=== PATIENT | female | born 1970 | race Hispanic/Latino ===

== ENCOUNTER 2024-06-11 21:47 | Emergency (ER) | payer SELFPAY ==
[~2024-06-11] VITALS: Ht 157.5 cm; Wt 81.2 kg
[2024-06-11] MEDS: ondanSETRON ODT 4MG TAB SL ONE (22:34)
[2024-06-11 22:38] LABS: BASOPHILS # (AUTO) 0.04 K/uL (0.00-0.20); BASOPHILS % (AUTO) 0.5 % (0.0-5.0); EOSINOPHILS # (AUTO) 0.15 K/uL (0.00-0.70); EOSINOPHILS % (AUTO) 1.9 % (0.0-8.0); HEMATOCRIT 43.8 % (36-48); IMMATURE GRANULOCYTE ABSOLUTE 0.03 K/uL (0-1); LYMPHOCYTES # (AUTO) 2.3 K/uL (1.0-4.8); LYMPHOCYTES % (AUTO) 29.3 % (21.0-51.0); MEAN CORPUSCULAR HEMOGLOBIN 28.7 pg (27.0-33.0); MEAN CORPUSCULAR VOLUME 84.2 fL (79-99); MONOCYTES # (AUTO) 0.6 K/uL (0.1-1.0); MONOCYTES % (AUTO) 7.1 % (3.0-13.0); NEUTROPHILS # (AUTO) 4.7 K/uL (1.8-7.7); NEUTROPHILS % (AUTO) 60.8 % (40.0-77.0); PLATELET COUNT (AUTO) 270 K/uL (130-400); RED CELL DISTRIBUTION WIDTH 12.2 % (11.0-15.5); WHITE BLOOD COUNT (AUTO) 7.7 K/uL (4.8-10.8)
[2024-06-11 22:50] LABS: CREATININE 0.7 mg/dL (0.5-1.0); POTASSIUM 3.9 mmol/L (3.5-5.1)
[2024-06-11 22:54] LABS: ALBUMIN 3.7 g/dL (3.5-5.0); BILIRUBIN,TOTAL 0.3 mg/dL (0.2-1.0); TOTAL PROTEIN, SERUM 7.4 g/dL (6.0-8.3)
--- NOTE | 2024-06-11 23:05 | ERN ---
ED Note History of Present Illness Stated Complaint: HIGH BP Chief Complaint: Hypertension Time Seen by MD: 21:52 Time Seen by Midlevel: 21:52 Dictation: 53-year-old female presents to the emergency department due to reported having pain to the left arm that began today at 6:00 p.m.. She states that the pain is primarily there regarding some movement but does slightly increase when there is pressure applied to the left shoulder. Patient states that she got concerned due to having some nausea that began 1 hour ago prior to arrival. At this time, she denies having any chest pain, chest pressure or shortness of breath associated with this. Patient states that she can not recall having sustained any trauma to the left shoulder. Upon initial evaluation, the patient presents in no acute distress along with a normal neurovascular examination. Allergies: Coded Allergies: No Known Allergies (Unverified Allergy, Unknown, 06/11/24) Emergency Care AERONAUTICAL ENGINEER: None Past Medical History Past Medical History: No Pertinent History Surgical History: None PSYCH History: no pertinent psych hx Social History: Lives with family RN Note Reviewed/Agreed w/PFSH: Yes Review of System Dictation See HPI. Initial Vital Sign VS Vital Signs Date Time Temp Pulse Resp B/P (MAP) Pulse Ox O2 Delivery O2 Flow Rate FiO2 06/11/24 22:10 96.3 75 18 138/89 98 Room Air 06/11/24 22:32 0 21 Physical Exam Dictation General: awake, alert, NAD Head/Face: Normocephalic, atraumatic Eyes: PERRL, EOMI ENT: Oral mucosa moist Neck: Trachea midline, supple Cardiovascular: RRR, no edema Respiratory: Symmetrical, non-labored Abdomen: Soft, non-tender, non-distended, no guarding. Skin: Warm, dry, good turgor, no rash MS/Extremity: Pulses equal, no cyanosis, neurovascular intact, tendons of the left shoulder. Normal neurovascular examination. Neuro: COAx4, GCS 15, steady gait, Psych: Normal behavior, mood, and affect normal Results (Laboratory/Radiology) Laboratory/Radiology Laboratory Tests Test 06/11/24 22:30 White Blood Count 7.7 K/uL (4.8-10.8) Red Blood Count 5.20 MIL/uL (4.00-5.50) Hemoglobin 14.9 g/dL (12.0-16.0) Hematocrit 43.8 % (36-48) Mean Corpuscular Volume 84.2 fL (79-99) Mean Corpuscular Hemoglobin 28.7 pg (27.0-33.0) Mean Corpuscular Hemoglobin Concent 34.0 g/dL (32.0-36.0) Red Cell Distribution Width 12.2 % (11.0-15.5) Platelet Count 270 K/uL (130-400) Mean Platelet Volume 9.9 fL (7.5-10.5) Immature Granulocyte % (Auto) 0.4 % (0-1) Neutrophils (%) (Auto) 60.8 % (40.0-77.0) Lymphocytes (%) (Auto) 29.3 % (21.0-51.0) Monocytes (%) (Auto) 7.1 % (3.0-13.0) Eosinophils (%) (Auto) 1.9 % (0.0-8.0) Basophils (%) (Auto) 0.5 % (0.0-5.0) Neutrophils # (Auto) 4.7 K/uL (1.8-7.7) Lymphocytes # (Auto) 2.3 K/uL (1.0-4.8) Monocytes # (Auto) 0.6 K/uL (0.1-1.0) Eosinophils # (Auto) 0.15 K/uL (0.00-0.70) Basophils # (Auto) 0.04 K/uL (0.00-0.20) Absolute Immature Granulocyte (auto 0.03 K/uL (0-1) Nucleated Red Blood Cells 0.0 % (0.0-0.19) Sodium Level 142 mmol/L (136-145) Potassium Level 3.9 mmol/L (3.5-5.1) Chloride Level 104 mmol/L (101-111) Carbon Dioxide Level 30 mmol/L (21-32) Blood Urea Nitrogen 9 mg/dL (7-18) Creatinine 0.7 mg/dL (0.5-1.0) Glomerular Filtration Rate Calc 104 mL/min (>90) Random Glucose 107 mg/dL (70-105) H Total Calcium 9.1 mg/dL (8.5-10.1) Total Bilirubin 0.3 mg/dL (0.2-1.0) Aspartate Amino Transf (AST/SGOT) 23 U/L (10-37) Alanine Aminotransferase (ALT/SGPT) 34 U/L (12-78) Alkaline Phosphatase 114 U/L (50-136) Troponin I High Sensitivity < 4 ng/L (4-50) L Total Protein 7.4 g/dL (6.0-8.3) Albumin 3.7 g/dL (3.5-5.0) Labs Reviewed?: Yes EKG Comment: EKG done 06/11/2024 at 10:22 p.m. Ventricular rate 65 beats per minute MI 140 MS QRS 84 MS QT 389 MS No STEMI. X-RAY Comment: X-ray of the left shoulder with no cortical anomalies or deformities as interpreted by me. ED Course ED Course Orders Procedure Category Date Status Time 12 Lead Ekg Tracing- EKG 06/11/24 Logged Technical 22:18 Troponin I High LAB 06/11/24 Complete Sensitivity 22:18 Cbc With Differential LAB 06/11/24 Complete 22:18 Comprehensive LAB 06/11/24 Complete Metabolic Panel 22:18 Ondansetron Odt 4mg PHA 06/11/24 Complete Tab (Zofran 4mg Odt) 22:30 Shoulder Comp 2+Vws Lt RAD 06/11/24 Taken 22:18 12 Lead Ekg Tracing- EKG 06/11/24 Logged Technical 22:18 Ketorolac 60mg/2ml PHA 06/11/24 Complete (Toradol 60mg/2ml) 23:00 Current Medications Medications (Trade) Dose Ordered Sig/Shana Route PRN Reason Start Time Stop Time Status Last Admin Dose Admin Ketorolac Tromethamine (toRADol 60MG/ 2ML) 60 mg ONCE ONCE IM 06/11/24 23:00 06/11/24 23:01 DC 06/11/24 23:15 Ondansetron HCl (zoFRAN 4MG ODT) 4 mg ONCE ONCE SL 06/11/24 22:30 06/11/24 22:31 DC 06/11/24 22:34 Vital Signs Date Time Temp Pulse Resp B/P (MAP) Pulse Ox O2 Delivery O2 Flow Rate FiO2 06/11/24 23:00 96.3 74 18 126/79 98 Room Air* 0 21 06/11/24 22:32 74 18 98 Room Air* 0 21 06/11/24 22:10 96.3 75 18 138/89 98 Room Air HEART Score Response (Comments) Value History: Low suspicion (0) 0 EKG: Normal 0 Age: 45-65yrs (+1) 1 Risk Factors: No known risk factors (0) 0 Initial Troponin: Normal limit (0) 0 HEART Score Risk: Low Risk for MACE (1-3) Total 1 Medical Decision Making MDM MDM: Differential diagnosis: Left shoulder pain, left shoulder strain, left shoulder sprain. Rationale: Tests considered and ordered secondary to shared decision making include: Previous outside records reviewed: Old ER visits. Risk of complication and/or morbidity or mortality of patient management: None Medications-Per medication reconciliation Need for hospitalization: Patient does not meet criteria for hospitalization. Need for emergency major/minor surgery: No There are no social concerns with this patient. Prescription drug management Prescriptions will include symptomatic care Patient's prior external medical records from other ER visits were reviewed by me as indicated. Prior testing and results from previous visits were reviewed. Prior tests were taken into account with medical decision making and resource utilization, independent historian/historians were used to obtain complete medical history. I independently interpreted the test that were performed, results were reviewed by me and considered findings on radiology if ordered. Medical management and examination interpretation discussions were had by me with other qualified healthcare professionals as indicated for the patient's care. DX & DISP Disposition: Discharge Departure Impression: Primary Impression: Left arm pain Additional Impression: Left shoulder pain Condition: Stable Referrals: SELF,REFERRAL (PCP) Time of Disposition: 23:43 ALONSO MONTE Jun 11, 2024 23:05
[2024-06-11] MEDS: ketOROlac 60 MG VIAL (30MG/ML) IM ONE (23:15)
[2024-06-11 23:58] VITALS: BP 130/71; PULSE 74; RESP 18; TEMP 97; O2SAT 98
--- NOTE | 2024-06-12 01:40 | HMCIMG ---
SHOULDER COMP 2+VWS LT HISTORY: Pain COMPARISON: None TECHNIQUE: 2 images of left shoulder were obtained. FINDINGS: There is no acute displaced fracture or dislocation. Degenerative changes are seen. IMPRESSION: 1. Findings as described above.
--- NOTE | 2024-06-12 05:09 | EKG ---
[facility] Test Date: 2024-06-11 Test Time: 22:22:04 Pat Name: CULLEN MUÑOZ Department: ED Room: Gender: F Event Executive: [birth year] : 1970 Requested By: ALONSO MONTE Order Number: [id number] Reading MD: Cassie Rangel Measurements Intervals [place] Rate: 65 P: 24 WV: 140 QRS: -15 QRSD: 84 T: 1 QT: 389 QTc: 406 Interpretive Statements Sinus rhythm Low voltage, precordial leads No previous ECG available for comparison Electronically Signed On 06-12-2024 08:05:31 INTERIOR MECHANIC by Cassie Rangel Please click the below link to view image of tracing.
== END 2024-06-11 23:59 | disposition home or self-care (01) ==
LOC: EDH 21:47
DX: M79.602 Pain in left arm (principal); M25.512 Pain in left shoulder
CPT/HCPCS: 99285; 84484; 80053; 85025; 36415; 73030; 96372; 93005; J1885